=== PATIENT | female | born 1970 | race Caucasian/White ===

== ENCOUNTER → 2019-12-11 | Outpatient (CLI) | payer BC, OTHER ==
[~2019-12-11] VITALS: Ht 170.2 cm; Wt 60.8 kg
[~2019-12-11] MED LIST: BIRTH CONTROL; DEXTROSTAT10 MG PO; DIFLUCAN150 M1 PO; LEVOXYL88 MCG PO; MELOXICAM7.5 MG PO; VITAMIN D
[2019-12-11 13:01] VITALS: BP 133/88
--- NOTE | 2019-12-11 13:02 | NUR ---
Pain Clinic Assessment: 1. History of Osteoarthritis: BILAT HANDS History of Rheumatoid Arthritis: 2. Height: 5 ft. 7 in. 170.2 cm. Weight: 134.0 lb. oz. 60.782 kg. Patient's BMI: 21.0 3. Vital Signs: BP: 133/88 Pulse: 73 Resp: 18 Temp: 02 Sat: 99 ECG Mon: 4. Pain Intensity: 2 5. Fall Risk: Dizziness: N Needs help standing or walking: N Fallen in the last 3 months: N Fall risk comments: 6. Patient on Blood Thinner: None 7. History of Hypertension: N 8. Opioid Therapy greater than 6 weeks: N Opiate Contract Signed: 9. Risk Assessment Tool Provided: 10. Functional Assessment Tool: 11. Recreational Drug Use: Never Drug Type: Tobacco Use: Never Smoker Tobacco Type: Amount or Packs/day: How Many Years: Alcohol Use: Yes Frequency: Daily Quant: 0-2
--- NOTE | 2019-12-18 08:21 | HPC ---
[facility] [place] [address] PAIN MANAGEMENT CONSULTATION Name: JORDAN HAYWOOD Room #: REG Imani Drummond.#: [id number] Admission: 12/11/19 Attend Phys: Vaishnavi Dsouza Discharge: Date of : 74 Report #: [id number] THIS REPORT FOR: cc: Jaguar Bob,Danica Grider MD ~ CC: Jaguar Bob DATE OF SERVICE: 12/16/2019 CHIEF COMPLAINT: Right shoulder pain. HISTORY: The patient is a 49-year-old female who has been followed or is being followed in the pain clinic because of neck and arm pain. The patient states that she has had some pain and discomfort for a number of months. She is experiencing stiffness in her neck. She is having pain in the right arm. She has had pain in the area of the lateral sides of her elbow. The concern was that she might have been experiencing tennis elbow. She does not feel that is the case. She notes that her pain is worse with use of her right arm. Pain improves when she is not using her arm. Describes her discomfort at times as constant, periodic, intermittent, brief and momentary. Has experienced some shooting and cramping discomfort. Has had throbbing, sharp and stabbing discomfort. Today, the pain is a 2/10. It often can rise to the level of 8/10. On average, it is about 5/10. She has not had surgery. She has undergone dry needling in the past without significant improvement. She has tried rehabilitation. Notes some worsening of her pain after moving some furniture. It initially occurred about 3 years ago. She has undergone deep tissue massage. While working at her desk using the computer mouse in her right arm with extending it causes worsening of her discomfort. She has had some cramping discomfort in the area of her triceps muscle. She feels that there has been some atrophy of her triceps muscle on the right side. She does perform yoga. She was found it more problematic at this juncture. ALLERGIES: PENICILLIN, SULFA. CURRENT MEDICATIONS: Vitamin D, control, levothyroxine 0.088 mg, Dextroamphetamine 10 mg b.i.d. PAST MEDICAL HISTORY: Joint disease/arthritis. PAST SURGICAL HISTORY: Breast augmentation in 1997. 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 REVIEW OF SYSTEMS: Generally good health, thyroid disease. [facility] [address] [place] [address] PAIN MANAGEMENT CONSULTATION Name: JORDAN HAYWOOD Room #: REG [facility]#: [id number] Admission: 12/11/19 Attend Phys: Vaishnavi Dsouza Discharge: Date of : 74 Report #: [id number] LABORATORY DATA: MRI of the cervical spine dated 12/29/2016: 1. C1-C2 unremarkable. 2. C2-C3 unremarkable. No bulge protrusion or stenosis. Facet joints were unremarkable. 3. C3-C4, there is no bulge protrusion. 4. C4-C5 very mild bulging. There is no central canal stenosis. The AP dimension of the central canal are 11 mm. There is no neural foraminal stenosis. 5. C5-C6 with very minimal bulging. There is no central canal or neural foraminal stenosis. The facet joints are unremarkable. 6. C6-C7 right paracentral disk protrusion extending into the right lateral recess measuring 6 mm transverse x 5 mm anterior to posterior. This causes a subtle effacement of the lateral recess and appears to the exiting C7 nerve root. The facet joints are unremarkable. 7. C7-T1 unremarkable. There is no disk bulge protrusion or stenosis. PAIN CLINIC ASSESSMENT AND PQRS: 1. The patient has some osteoarthritis involving both hands. She is not being treated for rheumatoid arthritis. 2. Height 5 feet 7 inches, weight 134 pounds. BMI is 21. 3. Vital Signs: Blood pressure 133/88, pulse 73, respiratory rate 18, room air saturation 99%. 4. Pain intensity 11/02. 5. Fall history: The patient has not fallen in the last 3 months. 6. Blood thinner. The patient is not on a blood thinning medication. 7. Hypertension. The patient is not being treated for hypertension. 8. Opioids greater than 6 weeks. The patient received medication from her primary. 9. Risk assessment tool, low for opioid use. 10. Functional assessment tool 66/70. 11. Recreational drug use: The patient denies. 12. Tobacco: The patient has never smoked. 13. Alcohol: The patient drinks 1-2 alcoholic beverages on occasion. PHYSICAL EXAMINATION: GENERAL: The patient is a well-developed, well-nourished white female. Appears her stated age. She is alert and oriented x 3. Her affect is appropriate. Speech is fluent. HEENT: Normocephalic, atraumatic. Extraocular eye muscles intact. Sclerae nonicteric. Mucous membranes are moist. NECK: Without adenopathy or JVD. The patient has pain and discomfort on the right shoulder with pain down into the right arm. Notes some perception of weakness in the right biceps. Experiencing numbness and tingling down into her hands. Muscle strength judged to be 5-/5 on the right and 5/5 on the left. HEART: Regular rate. ABDOMEN: Nontender. Bowel sounds present. [facility] [address] [place] [address] PAIN MANAGEMENT CONSULTATION Name: JORDAN HAYWOOD Room #: REG [facility]#: [id number] Admission: 12/11/19 Attend Phys: Vaishnavi Dsouza Discharge: Date of : 74 Report #: [id number] MUSCULOSKELETAL: The patient without significant scoliosis, kyphosis or lordosis. Forward bending was unremarkable. Left and right lateral bending were not problematic. Left and right lateral rotation were not problematic. Deep tendon reflexes are +1 for the left biceps and +1 for the right. Anterior and posterior spring tests are negative. IMPRESSION: Cervical radiculopathy involving the right side with pain and discomfort down in the C6-C7 dermatomal distribution. RECOMMENDATIONS: We discussed treatment options with the patient. Risks and benefits of an epidural steroid injection were discussed. Possibility of a conservative approach using Medrol Dosepak was declined. The patient would prefer to proceed with a cervical epidural steroid injection in the future. The patient will return to the Pain Clinic, at which time she will then undergo an epidural injection. She does work nights. She is scheduled and we will follow up in the near future. We would like to thank you for letting us participate in her care. We hope she continues to improve. <ELECTRONICALLY SIGNED> By: Danica Izquierdo MD 12/18/19 0821 [id number] MD ARI Valle
== END ==
LOC: PAIN 11:55
DX: M54.12 Radiculopathy, cervical region (principal)

== ENCOUNTER → 2019-12-18 | Outpatient (CLI) | payer BC, OTHER ==
[~2019-12-18] VITALS: Ht 170.2 cm; Wt 60.3 kg
[2019-12-18 12:18] VITALS: BP 134/86
--- NOTE | 2019-12-18 12:22 | NUR ---
Pain Clinic Assessment: 1. History of Osteoarthritis: BILAT HANDS History of Rheumatoid Arthritis: 2. Height: 5 ft. 7 in. 170.2 cm. Weight: 133.0 lb. oz. 60.328 kg. Patient's BMI: 20.8 3. Vital Signs: BP: 134/86 Pulse: 73 Resp: 18 Temp: 02 Sat: 99 ECG Mon: 4. Pain Intensity: 1 5. Fall Risk: Dizziness: N Needs help standing or walking: N Fallen in the last 3 months: N Fall risk comments: 6. Patient on Blood Thinner: None 7. History of Hypertension: N 8. Opioid Therapy greater than 6 weeks: N Opiate Contract Signed: 9. Risk Assessment Tool Provided: 10. Functional Assessment Tool: 11. Recreational Drug Use: Never Drug Type: Tobacco Use: Never Smoker Tobacco Type: Amount or Packs/day: How Many Years: Alcohol Use: Yes Frequency: Quant:
== END | disposition home or self-care (01) ==
LOC: PAIN 06:47
DX: M54.12 Radiculopathy, cervical region (principal); G89.29 Other chronic pain

== ENCOUNTER → 2020-02-05 | Outpatient (CLI) | payer BC, OTHER ==
[~2020-02-05] VITALS: Ht 170.2 cm; Wt 61.5 kg
[2020-02-05 10:58] VITALS: BP 105/57
--- NOTE | 2020-02-05 11:08 | NUR ---
Pain Clinic Assessment: 1. History of Osteoarthritis: BILAT HANDS History of Rheumatoid Arthritis: 2. Height: 5 ft. 7 in. 170.2 cm. Weight: 135.6 lb. oz. 61.508 kg. Patient's BMI: 21.2 3. Vital Signs: BP: 105/57 Pulse: 81 Resp: 14 Temp: 02 Sat: 98 ECG Mon: 4. Pain Intensity: 0; 5 with activity 5. Fall Risk: Dizziness: N Needs help standing or walking: N Fallen in the last 3 months: N Fall risk comments: 6. Patient on Blood Thinner: None 7. History of Hypertension: N 8. Opioid Therapy greater than 6 weeks: N Opiate Contract Signed: 9. Risk Assessment Tool Provided: 10. Functional Assessment Tool: 11. Recreational Drug Use: Never Drug Type: Tobacco Use: Never Smoker Tobacco Type: Amount or Packs/day: How Many Years: Alcohol Use: Yes Frequency: Quant:
== END | disposition home or self-care (01) ==
LOC: PAIN 06:57
DX: M54.12 Radiculopathy, cervical region (principal); G89.29 Other chronic pain; Z98.890 Other specified postprocedural states; Z79.899 Other long term (current) drug therapy; Z88.0 Allergy status to penicillin; Z88.2 Allergy status to sulfonamides

== ENCOUNTER → 2020-05-25 | Outpatient (CLI) | payer BC, OTHER ==
[~2020-05-25] VITALS: Ht 170.2 cm; Wt 59.6 kg
[~2020-05-25] MED LIST changes: +TRAMADOL100 MG PO
[2020-05-25 08:10] VITALS: BP 130/82
--- NOTE | 2020-05-25 08:22 | NUR ---
Pain Clinic Assessment: 1. History of Osteoarthritis: BILAT HANDS History of Rheumatoid Arthritis: Not Applicable 2. Height: 5 ft. 7 in. 170.2 cm. Weight: 131.4 lb. oz. 59.603 kg. Patient's BMI: 20.6 3. Vital Signs: BP: 130/82 Pulse: 88 Resp: 16 Temp: 02 Sat: 97 ECG Mon: 4. Pain Intensity: 7-8 5. Fall Risk: Dizziness: N Needs help standing or walking: N Fallen in the last 3 months: N Fall risk comments: 6. Patient on Blood Thinner: None 7. History of Hypertension: N 8. Opioid Therapy greater than 6 weeks: N Opiate Contract Signed: 9. Risk Assessment Tool Provided: LOW RISK 0/3 10. Functional Assessment Tool: 11. Recreational Drug Use: Never Drug Type: Tobacco Use: Never Smoker Tobacco Type: Amount or Packs/day: How Many Years: Alcohol Use: Yes Frequency: Weekly Quant: 2-3
--- NOTE | 2020-06-17 08:22 | HPC ---
[facility] [place] [address] PAIN MANAGEMENT CONSULTATION Name: JORDAN HAYWOOD Room #: REG YISSEL Drummond.#: [id number] Admission: 05/25/20 Attend Phys: Danica Izquierdo MD Discharge: Date of : 74 Report #: [id number] THIS REPORT FOR: cc: Jaguar Bob,Danica Grider MD ~ CC: Danica Bob DATE OF SERVICE: 05/25/2020 CHIEF COMPLAINT: Cervical neck pain on the right arm. HISTORY: The patient is a 49-year-old female who has been followed in the Pain Clinic because of cervical radiculopathy. She has been experiencing pain that radiates down into her right arm. She underwent an epidural steroid injection. She gleaned benefit from that. She is still having some pain and discomfort, which is still somewhat problematic. She rates it as a 2/10. She would like to proceed with another cervical epidural steroid injection today. ALLERGIES: PENICILLIN, SULFA. CURRENT MEDICATIONS: Vitamin D, control, levothyroxine 0.088 mg, and Dextroamphetamine 10 mg b.i.d. PAIN CLINIC ASSESSMENT AND PQRS: 1. The patient has some osteoarthritic changes in both hands. She is not being treated for rheumatoid arthritis. 2. Height 5 feet 7 inches, 139 pounds, BMI is 24.7. 3. Vital signs: Blood pressure 144/96, pulse 77, respiratory rate 18, room air saturation is 97%. 4. Pain intensity is 2/10. 5. Fall history: The patient has not fallen since we saw her last. 6. Blood thinner. The patient is not on a blood thinning medication. 7. Hypertension. The patient is being treated for hypertension. 8. Opioids greater than 6 weeks. The patient receives medication from one source. 9. Risk assessment tool, low for opioid use. 10. Functional assessment tool 40/70. 11. Recreational drug use. The patient denies. 12. Tobacco: The patient has never smoked. 13. Alcohol. The patient denies frequent use of alcoholic beverages. PHYSICAL EXAMINATION: GENERAL: The patient is a well-developed, well-nourished white female. Appears her stated age. She is alert and oriented x 3. Her affect is appropriate. [address] [address] PAIN MANAGEMENT CONSULTATION Name: JORDAN HAYWOOD Room #: REG [facility] Jayashree#: [id number] Admission: 05/25/20 Attend Phys: Danica Izquierdo MD Discharge: Date of : 74 Report #: [id number] Speech is fluent. HEENT: Normocephalic, atraumatic. Extraocular eye muscles intact. Sclerae nonicteric. Mucous membranes are moist. The patient is wearing a facial covering. NECK: Without adenopathy. The patient has complained of pain and discomfort in the right shoulder with pain that radiates down into the right side. Spurling sign is positive. Complains of some numbness in the area of the biceps and tingling down into her hand. Muscle strength judged to be 5-/5 on the right side and 5/5 on the left. HEART: Regular rate. ABDOMEN: Nontender. CHEST: Clear. MUSCULOSKELETAL: Without significant scoliosis, kyphosis or lordosis. Lower extremity muscle strength judged to be 5/5 for the major muscle groups in the lower extremity. IMPRESSION: 1. Cervical radiculopathy in the C6-C7 dermatomal distribution on the right. 2. Hypothyroidism. RECOMMENDATIONS: We discussed treatment options with the patient. Risks and benefits of an epidural steroid injection were discussed. They include but are not limited to infection, worsening of pain, no improvement in pain, nerve damage, bleeding. She is aware that steroid medications can decrease one's immune response. The COVID-19 pandemic is problematic. She elects to proceed. PROCEDURE NOTE: The patient was taken to the procedure area. She was then assisted in getting on the examination table. Her back was sterilely prepped with a Betadine solution. A 0.25% bupivacaine was infiltrated at the C7-T1 interspace. There was a total of 120 mg triamcinolone was injected using a 17-gauge Tuohy. Fluoroscopy using anterior posterior as well as lateral viewing were implemented. The patient tolerated the procedure well. She remained in the Pain Clinic for an appropriate amount of time. She will follow up in the future as needed. We would like to thank you for letting us participate in her care. We hope she continues to improve. A total of 29 seconds fluoroscopy time was used. The patient's pain decreased to 3 at the time of discharge. We would like to thank you for letting us participate in her care. We hope she continues to improve. <ELECTRONICALLY SIGNED> By: Danica Izquierdo MD 06/17/20 0822 [id number] Danica Izquierdo MD /nt
== END | disposition home or self-care (01) ==
LOC: PAIN 06:49
PROVIDERS: ATTEND Anesthesiology Pain Medicine
DX: M54.12 Radiculopathy, cervical region (principal); G89.29 Other chronic pain; E03.9 Hypothyroidism, unspecified; Z98.890 Other specified postprocedural states; Z88.0 Allergy status to penicillin; Z88.2 Allergy status to sulfonamides; Z79.899 Other long term (current) drug therapy

== ENCOUNTER → 2020-12-16 | Outpatient (CLI) | payer BC, OTHER ==
[~2020-12-16] VITALS: Ht 172.7 cm; Wt 60.2 kg
[2020-12-16 13:32] VITALS: BP 121/81
--- NOTE | 2020-12-16 13:38 | NUR ---
Pain Clinic Assessment: 1. History of Osteoarthritis: BILAT HANDS History of Rheumatoid Arthritis: Not Applicable 2. Height: 5 ft. 8 in. 172.7 cm. Weight: 132.8 lb. oz. 60.238 kg. Patient's BMI: 20.2 3. Vital Signs: BP: 121/81 Pulse: 100 Resp: 18 Temp: 02 Sat: 100 ECG Mon: 4. Pain Intensity: 7-8 5. Fall Risk: Dizziness: N Needs help standing or walking: N Fallen in the last 3 months: N Fall risk comments: 6. Patient on Blood Thinner: None 7. History of Hypertension: N 8. Opioid Therapy greater than 6 weeks: N Opiate Contract Signed: 9. Risk Assessment Tool Provided: LOW RISK 0/3 10. Functional Assessment Tool: 11. Recreational Drug Use: Never Drug Type: Tobacco Use: Never Smoker Tobacco Type: Amount or Packs/day: How Many Years: Alcohol Use: Yes Frequency: Weekly Quant:
== END | disposition home or self-care (01) ==
LOC: PAIN 07:02
PROVIDERS: ATTEND Anesthesiology Pain Medicine
DX: M54.12 Radiculopathy, cervical region (principal); G89.29 Other chronic pain; M19.90 Unspecified osteoarthritis, unspecified site; Z98.890 Other specified postprocedural states; Z79.899 Other long term (current) drug therapy; Z88.2 Allergy status to sulfonamides; Z88.0 Allergy status to penicillin